=== PATIENT | female | born 1975 | race Caucasian/White ===

== ENCOUNTER 2023-02-25 06:23 | Day surgery (SDC) | payer OTHER, SELFPAY ==
[2023-02-23 10:01] VITALS: BMI 39.9
[2023-02-25] VITALS (10 sets, daily range): BP systolic 137–160; BP diastolic 82–118; PULSE 95–114; RESP 10–19; TEMP 36.4–36.8; O2SAT 91–98; BMI 39.9
--- NOTE | 2023-02-25 | DI.RAD.S_ITS ---
PROCEDURE: XR ANKLE RT 2V INDICATIONS: RT ANKLE FUSION TECHNIQUE: 4 intraoperative fluoroscopic views of the ankle were acquired. COMPARISON: None. FINDINGS: Intraoperative fluoroscopic images of right ankle shows fusion of tibiotalar joint with surgical plate and screws seen. IMPRESSION: Fluoro guidance was provided intraoperatively for fusion of tibiotalar joint. Dictated by: Gilberto Camp M.D. on 02/25/2023 at 12:40 Approved by: Gilberto Camp M.D. on 02/25/2023 at 12:41
--- NOTE | 2023-02-25 07:18 | PM.PREOP ---
Pre-operative Note Interval Note History & Physical reviewed/Exam performed by Physician: Yes Changes to H&P: No
[2023-02-25] MEDS: LACTATED RINGERS 1,000 ML 42 ML IV ×2 (07:27→09:15)
--- NOTE | 2023-02-25 07:29 | SUR.PREOP ---
Time out done prior to Nerve block placement.
[2023-02-25] MEDS: MIDAZOLAM 2 MG/2 ML VIAL IV (07:42)
--- NOTE | 2023-02-25 07:43 | SUR.PREOP ---
Block start time [0730] . Monitoring initiated and maintained throughout procedure. Oxygen and medications given per anesthesiologist instructions. Patient remained stable throughout procedure, no adverse reactions noted. Block end time [0751].
[2023-02-25] MEDS: CEFAZOLIN VIAL 3 GM in SODIUM CHLORIDE 0.9% 100 ML IV (08:10)
[2023-02-25] MEDS: ACETAMINOPHEN IV 1,000 MG/100 ML VIAL 400 MG IV (08:10)
[2023-02-25] MEDS: BUPIVACAINE 0.25% (PF) 30 ML, EPINEPHrine 0.15 MG INJ (09:17)
--- NOTE | 2023-02-25 09:41 | SUR.OPER ---
Supine on padded OR bed, head on pillow, arms secured on padded arm boards at <90 degrees abduction, legs uncrossed, safety belt at lower torso, tape over blanket over left lower leg. Rolled blanket bump under right hip. Folded blankets under right leg placed by surgeon.
--- NOTE | 2023-02-25 10:50 | P.OP_ITS ---
Operative Date/Time/Diagnoses Date of procedure: 02/25/23 Time of procedure: 10:50 Pre-op diagnosis: Ankle arthritis right, posttraumatic Obesity BMI 40 Post-op diagnosis: same Procedure & Clinicians Procedure: Ankle fusion open CPT code 91534 right Same procedure as scheduled: Yes Indications: The patient is a 47-year-old female with end-stage posttraumatic varus ankle arthritis. She is failed exhaustive conservative treatment has been indicated for ankle arthrodesis. The risks and benefits of the procedure have been discussed with the patient and given the opportunity to ask questions. The risks of surgery include but are not limited to infection, malunion, nonunion, persistence of pain, damage to nerves and blood vessels, posttraumatic arthritis, DVT, PE, coardiopulmonary complications and . The patient expressed a thorough understanding of the risks and benefits of surgery and has elected to proceed. Consent was signed. We discussed the use of allograft and autograft. During the operation, the services of a physician surgical supplies sterilizer were medically indicated and necessary to provide the exposure of the operative site for the surgical procedure and to maintain the limb in a proper position to carry out the operation safely and efficiently. Without a qualified hearing and speech assistant being present this would extended the operative procedure and made the procedure technically more difficult to perform. Surgeon: Bailee Nicole Transmission Line Engineer: Lata Castellanos Anesthesia Type: General, Peripheral nerve block and Local Operative Notes Findings: Varus ankle arthritis eburnated talar bone. Full-thickness cartilage loss. Varus deformity. After debriding remaining cartilage and preparing the joint ankle alignment was corrected and pinned in place and secured with a contoured right-sided anterior ankle plate from the paragon 28 set Closure Type: primary Specimen(s): none sent Prosthetic devices, grafts, tissues, transplants, or devices: [place] 28 silver back anterior tibiotalar plate standard contoured right 4.2 locking and nonlocking screws in the talus 4.5 locking and nonlocking screws in the tibia 7.0 headed partially-threaded lag screw outside the plate length 60mm Bone graft Osteocel allograft cellular bone matrix small x2 Estimated Blood Loss (mL): 30 Blood products transfused: none Tourniquet time (min): 94 Procedure in detail: Patient was seen in the preoperative area the site of surgery marked informed consent confirmed. The patient was brought back to the operating room by the anesthesia team. A regional block was placed postoperative pain control. The patient then underwent general anesthesia. The right lower extremity was prepped and draped in the standard sterile fashion. A nonsterile thigh tourniquet was placed. A formal time-out procedure was performed confirming the patient's side and site of surgery administration of appropriate preoperative antibiotics and presence of informed consent. Antibiotics were 3 g of Ancef. Attention turned to the right lower extremity Esmarch was used for exsanguination the tourniquet elevated on the thigh to 250 mmHg. Attention was turned to the anterior ankle. A standard anterior approach centered along the ankle joint and just lateral to the tibial crest was taken approximately 12 cm in length. This was taken down through the skin subcutaneous tissue. Care was taken to identify and protect the superficial peroneal nerve and retracted laterally. The sheath over the EHL was identified and opened. The tibialis anterior was kept in its sheath and retracted medially and the EHL and neurovascular bundle were retracted laterally. The joint was identified and the capsule reflected demonstrating the end-stage arthritic tibiotalar joint. Distal tibia and talus down to the level of the tn joint were exposed. Large osteophytes were removed with a rongeur. The bone was eburnated. And full- thickness cartilage loss throughout the tibiotalar joint. The joint was d istracted and a combination of curette rongeur and a bur were used to prepare the tibial and talar surfaces. The joint was correctable to neutral. After preparation of the surfaces these were then drilled with the fenestrated drill and then fish-scaled to provide good cancellous bleeding bone on both surfaces. At this point the Osteocel cellular bone graft was placed along the tibia and talar surfaces to provide a bone graft to facilitate fusion. And to reduce comorbidities associated with donor sites. At this point the tibiotalar joint was reduced and pinned with a large wire. Alignment was checked in the AP and lateral planes. Next a contoured anterior plate from the paragon set was fit the ankle this was found to fit better than the flap plate and this was secured in place with 2 olive wires. Next a nonlocking screw was placed into a tibial hole followed by a nonlocking screw in the oblong hole of the plate into the tibia this was not completely secured. At this point the drill guide for the lag screw was utilized outside the plate and the wire advanced. Once this was appropriate length and location in the talus this was measured overdrilled and countersunk and a 60 mm short thread 7.0 monster screw was then advanced across the joint in a lag fashion. Once this was secured the cortical screw in the oblong hole the plate was finally tightened. This completed the compression the remainder of the screw holes in the talus were filled with locking screws and locking screws in the 3 locking holes of the tibia. This completed the construct which was noted to be secure and appropriate alignment and placement of the screws and hardware was verified on AP, oblique and lateral intraoperative fluoroscopy. This point the tourniquet was released hemostasis was achieved. Capsule was closed with 0 Vicryl. Tendon sheath closed with 2-0 Vicryl subcutaneous tissue was closed with 4-0 Monocryl and 3-0 nylon. Local anesthetic was infiltrated and a sterile dressing with Xeroform gauze Webril and a posterior and U splint in neutral dorsiflexion was placed. Patient was woken from anesthesia and taken to the recovery room in good condition. There no immediate complications from this procedure all counts were correct. Complications: none Post-operative Condition: stable Disposition: PACU Plan for aftercare: Nonweightbearing 8 weeks. Splint for 1st 2 weeks. Sutures remain in 2-4 weeks. Then will go into a boot and remain nonweightbearing for the duration of the weeks then progressive weight-bearing in the boot for a month. Aspirin 325 daily for 6 weeks for DVT prophylaxis.
== END 2023-02-25 11:46 | disposition home or self-care (01) ==
PROVIDERS: Referring Provider Orthopaedic Surgery Foot and Ankle Surgery; Visit Provider Orthopaedic Surgery Foot and Ankle Surgery
PROC: (CPT 27870; principal; 2023-02-25 07:45)
DX: M19.171 Post-traumatic osteoarthritis, right ankle and foot (principal); E66.9 Obesity, unspecified; G89.18 Other acute postprocedural pain; Z68.39 Body mass index [BMI] 39.0-39.9, adult; M25.771 Osteophyte, right ankle
CPT/HCPCS: 27870; 20902; 64450; 73600; 76000; J0131; J0171; J0690; J1100; J1170; J1885; J2250; J2405; J2704; J3010